=== PATIENT | female | born 1955 | race Caucasian/White ===

== ENCOUNTER 2017-06-22 08:23 | Observation (INO) ==
[2017-06-22] MEDS ORDERED: ENOXAPARIN 100 MG/ML SYRINGE SUBCUT STA (09:07)
[2017-06-22] MEDS ORDERED: MORPHINE 2 MG/1 ML SYRINGE IV STA (09:07)
[2017-06-22] MEDS ORDERED: ONDANSETRON 4 MG/2 ML VIAL IV STA (09:07)
[2017-06-22] MEDS ORDERED: ENOXAPARIN 100 MG/ML SYRINGE SUBCUT ONE (09:12)
--- NOTE | 2017-06-22 09:12 | Emergency Department Note ---
Fabian Jay Brittany, am scribing for, and in the presence of, Jose Reza MD 09:06. Libia Jay James D, MD, personally performed the services described in this documentation, ascribed by Jahaira Peralta in my presence, and it is both accurate and complete 912 . Arrival - Arrival Chief Complaint: Chest Pain Stated Complaint: chest pain ED Nursing Triage Note: C/O Having chest pain since last evening., states she woke up this am at 0400 with chest pain so she went to [facility] , Report from Medic was enzymes were negative at [facility] , During triage patient c/o having mid-to left chest pain that is sharp in nature and is radiating to the left arm and the neck, + SOB, + Nausea , patient has nitro paste at time of arrival to the right side of the chest Mode of Arrival: Ambulatory Limitations: No Limitations Source: Patient, RN Notes Reviewed - History of Present Illness HPI Narrative: Patient is a 61 y/o white female presenting to the ED via EMS from [facility] with c/o chest pain that began yesterday while taking to [place]. Resolved, then came back upon arrival home. Took a [place] and pain went away. Onset again this morning at 0300 described as a constant elephant sitting on her chest, worse with exertion. She has had some associated SOB and nausea with this pain. Patient presented to [facility] for further evaluation where she was found to have negative cardiac enzymes. 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 Last Cardiac Catheterization was 2 years ago and has had 5 stents placed with last being placed about 5-6 years ago. Pain is similar to that experienced when requiring catheterization. No further complaints. Onset (ago): hour(s) (4) Consistency: constant Severity: moderate Severity scale (1-10): 6 Quality: sharp Allergies/Adverse Reactions: Allergies Allergy/AdvReac Type Severity Reaction Status Date / Time No Known Allergies Allergy Verified 04/26/15 10:11 Review of System - Review of System 12 point system: reviewed and no additional remarkable complaints except as stated - Review of System Respiratory: Present: respiratory distress Cardiovascular: Present: chest pain Gastrointestinal: Present: nausea Musculoskeletal: Present: neck pain Medical,Surgical,& Family Hx - Medical History Cardio: History of: Hypertension, [place] Neurology: No history of: Seizures Endocrine: History of: Dyslipidemia - Social History Smoking Status: Never smoker Frequency of Alcohol Use: None Type of Drug Use: None Exam Physical Examination: GENERAL: This is a well-nourished, well-developed white female in no apparent distress. VITAL SIGNS: Reviewed. HEENT: Head is normocephalic and atraumatic. Pupils are equally round and reactive to light. Extraocular movement are intact. Oropharynx is benign with moist mucous membranes. NECK: Neck is soft and supple without tenderness. There are no masses. There is no lymphadenopathy. LUNGS: Lungs are clear to auscultation bilaterally. Chest rises symmetrically. There is no chest wall tenderness. CV: Heart is regular rate and rhythm without murmurs, rubs, or gallops. ABDOMEN: Abdomen is soft, non-tender to palpation. There are no abnormal masses palpated. There is no organomegaly. Bowel sounds are present and active. SKIN: Skin is warm and dry. No rash. EXTREMITIES: Patient has full range of motion without tenderness. There is no pedal edema. NEUROLOGIC: Awake, alert, and oriented x4. Cranial nerves II through XII are grossly intact. There are no motorsensory deficits. PSYCHIATRIC: Normal affect. Normal mood. Vital Signs: Vital Signs Temperature 98.7 F 06/22/17 08:24 Pulse Rate 61 06/22/17 08:34 Respiratory Rate 16 06/22/17 08:34 Blood Pressure 148/88 06/22/17 08:34 O2 Sat by Pulse Oximetry 100 06/22/17 08:34 Course - Consultations Consultation #1: Discussed with Dr. Wisdom. Patient will be admitted to their service. Time: 09:08 Results - Labs Lab Results: I have reviewed the patients labs Labs: Lab performed at [facility] and reviewed by me: INR 1.0 Troponin less than 0.03 ProBNP 243 Urinalysis: Specific gravity 1.010, pH 6.0, nitrite negative, protein negative, glucose negative Urine drug screen positive for opiates Chemistry: Sodium 141, potassium 4.1, chloride 100, CO2 31, BUN 15, creatinine 0.7, glucose 146, - EKG EKG results: interpreted by ERMD - Impressions EKG: Sinus bradycardia with a rate of 55, normal ST T waves, normal axis. - Diagnostic Findings Procedure: Chest x-ray: image reviewed by me Disposition Clinical Impression: Unstable angina, Coronary artery disease Case discussed with: patient Condition: Guarded
[2017-06-22] MEDS ORDERED: MORPHINE 2 MG/1 ML SYRINGE ONE (09:13)
[2017-06-22] MEDS ORDERED: ONDANSETRON 4 MG/2 ML VIAL ONE ×2 (09:13→12:10)
[2017-06-22] MEDS ORDERED: NITROGLYCERIN 2% OINT 1 INCH/GM PACK TOP STA (09:48)
--- NOTE | 2017-06-22 09:48 | Cardiology History & Physical ---
<Polly Hackett - Last Filed: 06/22/17 09:51> Assessment and Plan - Time spent with patient Time spent with patient: Greater than 30 minutes (1) Chest pain Status: Acute Assessment and plan: SEE PLAN OF CARE LISTED BELOW. Current Visit: Yes (2) Hypertension Status: Chronic Assessment and plan: SEE PLAN OF CARE LISTED BELOW. Current Visit: Yes (3) Dyslipidemia Status: Chronic Assessment and plan: SEE PLAN OF CARE LISTED BELOW. Current Visit: Yes (4) Diabetes Status: Chronic Assessment and plan: SEE PLAN OF CARE LISTED BELOW. Current Visit: Yes (5) Coronary artery disease Status: Chronic Assessment and plan: SEE PLAN OF CARE LISTED BELOW. 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 Rodriguez is a 61 year old female with known history of coronary artery disease , routinely followed by [place] [facility]ology. Cardiac surgery significant for: Known CAD, hypertension, dyslipidemia, diabetes, obesity, family history of CAD (mother and father [place]) and sedentary lifestyle. Past medical history of thyroidectomy. Lifetime non-smoker. She is a patient of Dr. Blanco. Previous cardiology records unavailable. She reports that she has no history of cardiomyopathy. Will request previous cardiology records. She does report that her last heart catheterization was performed between 1-2 years ago. Her coronary anatomy was unchanged at that time and she did not require intervention. She does report a history of 5 stents in the past. Her first stent was placed around year 1999 and she has required 1-2 stents every couple of years since that time. Patient presented to [facility] June 22, 2017 with complaints of left-sided and midsternal chest pain. Her chest pain began yesterday while she was taking her to [place]. She describes it as a squeezing type pain located to her left chest also midsternal area. Radiated to her jaw left arm and back of her neck. Associated with shortness of breath, nausea and diaphoresis. She reports that this lasted approximately 30 minutes. She took nitroglycerin which then resolved her discomfort. She then had intermittent episodes off and on the rest of the day. She took her cardiology medications at night and felt better. Around 3:00 this morning she was awoken with chest pain. She reports that it felt like an elephant was sitting on top of her chest. Associated with severe shortness of breath, nausea and diaphoresis. Radiation to jaw, left arm and back of neck. She was very concerned as it felt exactly like it has in the past when she has underwent coronary PCI. She is unsure if there was an exertional component as she has not done anything exertional in the last couple days because she has not felt well. Unable to identify any alleviating or aggravating factors other than nitroglycerin did lessen her pain. At that point, she was concerned that she was having a heart attack and [facility] At that facility, she was noted to have negative cardiac biomarkers. She was sent to our facility for further evaluation. She will be admitted under cardiology's service. Patient was seen and examined in the emergency department. She continues to have intermittent chest pain. Concerning for angina. Cardiac biomarkers are pending. EKG without ischemic changes. Patient did receive therapeutic dose of Lovenox in the emergency department. I have added full dose aspirin. Unfortunately, heart rate will not allow for initiation of beta blockade. Continue nitrates. Patient continues to have intermittent chest pain. I discussed this with Dr. Ryann Rolle. We will start heparin infusion plan for heart catheterization today. I will keep patient n.p.o. Risk and benefits of cardiac catheterization were reviewed with the patient. She is agreeable to proceed today. She denies allergy to IVP dye, shellfish or iodine. Further plan and addendum to follow per Dr. Ryann Rolle IMPRESSION AND PLAN: 1. CHEST PAIN - Concerning for angina. Patient received therapeutic dose Lovenox in the emergency department. I have added full dose aspirin. Unfortunately, heart rate will not allow for beta-blockade. Continue nitrates. Cardiac biomarkers pending. EKG without ischemic changes. She continues to have intermittent chest pain. I discussed this with Dr. Ryann Rolle. We will start heparin infusion and plan for heart catheterization. I will keep patient n.p.o. Risk and benefits of cardiac catheterization were reviewed with the patient. She is agreeable to proceed today. She denies allergy to IVP dye , iodine or shellfish. Further plan and addendum to follow per Dr. Rolle 2. HISTORY OF CAD - Patient of Dr. Blanco. No previous cardiology records available. These have been requested. Continue aspirin and nitrates. Heart rate will not allow for beta-blockade. Hopefully we can initiate this prior to discharge. 3. HYPERTENSION - Suboptimally controlled. I have added Norvasc. All medications have not been 4. DYSLIPIDEMIA - Lipid panel ordered. Will reinitiate lipid-lowering agent when medications have been identified and confirmed. 5. DIABETES - Sliding scale insulin. Accu-Cheks before meals and at bedtime. Allergies Allergy/AdvReac Type Severity Reaction Status Date / Time No Known Allergies Allergy Verified 04/26/15 10:11 - Constitutional Constitutional: Present: as per HPI, fatigue. Absent: chills, fever(s), frequent falls, headache(s), weakness, weight gain, weight loss - Cardiovascular Cardiovascular: Present: as per HPI, chest pain at rest, diaphoresis, dyspnea, dyspnea on exertion, radiating jaw, neck or arm pain. Absent: claudication, edema, lightheadedness, orthopnea, palpitations, PND - Respiratory Respiratory: Present: dyspnea, dyspnea on exertion. Absent: as per HPI, cough, hemoptysis, wheezing, snoring, pain on inspiration, change in phlegm color - Gastrointestinal Gastrointestinal: Present: as per HPI, nausea. Absent: abdominal pain, change in bowel habits, coffee ground emesis, heartburn, hematemesis, hematochezia, melena, vomiting - Neurological Neurological: Present: as per HPI. Absent: abnormal gait, abnormal speech, behavioral changes, dizziness, frequent falls, syncope - Psychiatric Psychiatric: Absent: as per HPI, anxiety, depression, panic attacks - Hematologic/Lymphatic Hematologic/Lymphatic: Present: as per HPI. Absent: easy bleeding, easy bruising Medical,Surgical,& Family Hx - Medical History Cardio: History of: CAD, Hypertension, [place] Neurology: No history of: Seizures Endocrine: History of: Diabetes Mellitus (NIDDM), Dyslipidemia - Surgical History Cardiac Surgeries: Sugical HX of: Cardiac Catheterization - Family History Family History: Reports;: Family Heart Disease - Social History Smoking Status: Never smoker Frequency of Alcohol Use: None Type of Drug Use: None Marital Status: Life Partner Lives With:: Significant Other Functional capacity: independent ambulation Cardiology Physical Exam - Constitutional Vitals: Vital Signs Temp Pulse Resp BP Pulse Ox 98.7 F 54 L 16 169/77 100 06/22/17 08:24 06/22/17 09:00 06/22/17 09:00 06/22/17 09:00 06/22/17 09:00 Intake and Output 06/21/17 06/22/17 06/22/17 22:59 06:59 14:59 Other: Weight 206 lb Patient Weight 06/23/17 06:59 Weight 206 lb Exam: General: Appears well with no apparent distress. Pleasant and cooperative. Appears comfortable. HEENT: PERRL, normocephalic, atraumatic. Mucous membranes moist. No jaundice noted. Conjunctiva moist and clear, sclerae anicteric Neck: No JVD/HJR, no thyromegaly or lymphadenopathy noted. No carotid bruit appreciated Cardiac: Regular rate and rhythm. No murmur rub or gallop. Lungs: Clear to auscultation without accessory muscle use to assist the respiratory pattern. Oxygen via nasal cannula Abdomen: Soft, bowel sounds normoactive. Nontender and nondistended. No abdominal bruit or thrill noted. No masses noted. Extremities: No clubbing, cyanosis noted. No edema noted. Upper extremity pulses 2+. Lower extremity pulses 2+. Capillary refill less than 3 seconds. Skin: No unusual lesions or rashes. No skin breakdown appreciated. Neuro: Awake, alert and oriented 3. Moves all extremities well without hemiparesis or paralysis. No essential tremor is appreciated. Result/EKG - Labs Lab Results: I have reviewed the past 24 hour labs <Ryann Rolle - Last Filed: 06/22/17 10:38> History of Present Illness History of present illness: I have personally interviewed and examined the patient, reviewed the chart and discussed medical decision-making with practitioner Lew. I have read this note and agree with the documentation herein. The patient is known to have coronary artery disease and presents with cardiac symptoms that have some atypical features, some typical features, but are ongoing and similar to prior anginal symptoms. Accordingly we will proceed with cardiac catheterization. She has no contra indication to dual antiplatelet therapy, denies IVP contrast allergy. Cardiology Physical Exam - Constitutional Vitals: Vital Signs Temp Pulse Resp BP Pulse Ox 98.7 F 54 L 1 L 165/75 100 06/22/17 08:24 06/22/17 10:00 06/22/17 10:00 06/22/17 10:00 06/22/17 10:00 Intake and Output 10/01/3106/22/17 06/22/17 23:59 07:59 15:59 Other: Weight 93.44 kg Patient Weight 06/22/17 23:59 Weight 93.44 kg Result/EKG - Labs Labs: Laboratory Results - last 24 hr 06/22/17 09:26 Troponin I < 0.015
[2017-06-22] MEDS ORDERED: ASPIRIN 325 MG TABLET PO STA (09:50)
--- NOTE | 2017-06-22 09:58 | XRay Report ---
History: Chest pain Date: 06/22/2017 at 9:44 AM Study: Chest x-ray AP portable Comparison exam: July 24, 2016 outside chest x-ray The cardiac silhouette is upper normal in size. Coronary artery stent overlies the left cardiac shadow. There is no mediastinal mass. The pulmonary vasculature is not engorged. The lungs and pleural spaces are generally clear. Osseous structures are unchanged. Impression: No acute cardiopulmonary process compared to the previous study. Coronary artery stent PROCEDURE INTERPRETED AT [facility] DEPARTMENT OF RADIOLOGY Final Report Signed by: Dr. Lizy Hopkins
[2017-06-22] MEDS ORDERED: amLODIPine 5 MG TABLET PO STA (09:59)
[2017-06-22] MEDS ORDERED: SODIUM CHLORIDE 0.45% 1,000 ML IV SCH (10:00)
[2017-06-22] MEDS ORDERED: NITROGLYCERIN 2% OINT 1 INCH/GM PACK TOP ONE (10:17)
[2017-06-22] MEDS ORDERED: amLODIPine 5 MG TABLET ONE (10:17)
[2017-06-22] MEDS ORDERED: ASPIRIN 325 MG TABLET ONE (10:17)
[2017-06-22] MEDS ORDERED: ACETAMINOPHEN 325 MG TABLET PO PRN (10:20)
[2017-06-22] MEDS ORDERED: MAGNESIUM SULF RIDER 4 GM in PREMIX 1 EACH IV PRN (10:20)
[2017-06-22] MEDS ORDERED: INSULIN REGULAR 100 UNIT/ML SUBCUT ONE (10:20)
[2017-06-22] MEDS ORDERED: POTASSIUM CHLORIDE 20 MEQ TABLET PO PRN (10:20)
[2017-06-22] MEDS ORDERED: ZALEPLON 5 MG CAPSULE PO PRN (10:20)
[2017-06-22] MEDS ORDERED: MAGNESIUM SULF RIDER 2 GM in PREMIX 1 EACH IV PRN ×2 (10:20→10:26)
[2017-06-22] MEDS ORDERED: POTASSIUM CHLORIDE RIDER 10 MEQ in PREMIX 1 EACH IV PRN (10:26)
[2017-06-22] MEDS ORDERED: DIAZEPAM 5 MG TABLET PO ONE (10:26)
[2017-06-22] MEDS ORDERED: diphenhydrAMINE CAP 25 MG CAPSULE PO ONE (10:26)
[2017-06-22] MEDS ORDERED: HEPARIN DRIP 25,000 UNITS/500 ML PREMIX IV SCH (10:30)
[2017-06-22 10:38] LABS: Risk Ratio 2.54; VLDL CHOLESTEROL 33.8 MG/DL
--- NOTE | 2017-06-22 10:38 | History and Physical Update ---
Sedation H&P Update - History and Physical H&P was reviewed, the patient examined and there: are no changes in the patients condition since last H&P was completed. - Dictation Physical: refer to H&P completed by admitting physician - Physical Exam Mental Status: alert and oriented Heart: regular rate and rhythm Lung: clear to auscultation Abdomen: within normal limits Vitals: within normal limits - Sedation Plan for Sedation: moderate Patient Consent: Procedure disscussed with patient and patinet has consented., Risks and benefits were discussed with patient,including infection,, bleeding, injury to surrounding structures, seizure, temporary nerve, Patient understands and accepts potential risks/benefits and agrees to, proceed. ASA Class: IV Airway Assessment: Class II: Soft palate, uvula, fauces visible
[2017-06-22 10:43] LABS: Troponin I Only < 0.015 NG/ML (0.00-0.045)
[2017-06-22 10:48] LABS: Calcium 8.8 MG/DL (8.5-10.1); Magnesium 2.1 MG/DL (1.8-2.4); Osmolality,Calculated 281.4 MOS/KG (273-304); Potassium 3.9 MMOL/L (3.5-5.1)
[2017-06-22] MEDS ORDERED: LIDOCAINE 1% 20 ML VIAL ONE (11:03)
[2017-06-22] MEDS ORDERED: HEPARIN/NACL 0.9% 2 UNITS/ML 1,000 ML IV ONE (11:04)
[2017-06-22] MEDS ORDERED: diphenhydrAMINE CAP 25 MG CAPSULE ONE (11:17)
[2017-06-22] MEDS ORDERED: DIAZEPAM 5 MG TABLET ONE (11:17)
[2017-06-22] MEDS ORDERED: SODIUM BICARB INJ 100 MEQ in SODIUM CHLORIDE 0.45% 1,000 ML IV SCH (11:40)
[2017-06-22] MEDS ORDERED: fentaNYL 100 MCG/2 ML VIAL ONE ×2 (11:49→12:19)
[2017-06-22] MEDS ORDERED: MIDAZOLAM 2 MG/2 ML VIAL ONE ×2 (11:49→12:09)
[2017-06-22] MEDS ORDERED: NITROGLYCERIN 2% OINT 1 INCH/GM PACK TOP SCH (12:00)
[2017-06-22] MEDS ORDERED: EPTIFIBATIDE 20,000 MCG/10 ML VIAL ONE (12:07)
[2017-06-22] MEDS ORDERED: EPTIFIBATIDE 75 MG/100 ML BOTTLE IV ONE (12:09)
[2017-06-22] MEDS ORDERED: NITROGLYCERIN SL 0.4 MG TABLET SL PRN (12:45)
--- NOTE | 2017-06-22 13:13 | Order Completion Report ---
See report scanned to EMR
--- NOTE | 2017-06-22 14:57 | CT Report ---
Exam: CT angiography chest without and with intravenous contrast Clinical History: 61 years,Female,pleuritic chest pain, shortness of breath Technique: Axial computed tomographic angiography images of the chest without and with intravenous contrast using pulmonary embolism protocol. The CT exam was performed using one or more of the following dose reduction techniques: Automated exposure control, adjustment of the mA and/or kV according to patient size, or use of iterative reconstruction technique. Contrast: 100 mL of Omnipaque 350 administered intravenously Comparison: No relevant comparison studies available Findings: Pulmonary arteries: No vascular intraluminal filling defects to suggest pulmonary embolism Aorta: No dissection or thoracic aortic aneurysm. Lungs: Well aerated. No consolidation. No mass. Pleural spaces: No effusion. No pneumothorax Heart: Coronary atherosclerotic changes. Likely coronary stent in place Mediastinum: Moderate hiatal hernia Bones/joints: Intact. No acute fracture. No dislocation. Soft tissues: Unremarkable. Lymph nodes: No enlarged lymph nodes Impression: 1. No evidence of pulmonary embolism 2. Moderate hiatal hernia 3. Coronary atherosclerosis 4. Other findings as described PROCEDURE INTERPRETED AT [facility] DEPARTMENT OF RADIOLOGY Final Report Signed by: Bernardo Jerry MD
[2017-06-22] MEDS: ACETAMINOPHEN/CODEINE 300-30 MG TABLET PO PRN ×2 (15:22→21:15)
--- NOTE | 2017-06-22 16:04 | Order Completion Report ---
See report scanned to EMR
[2017-06-22] MEDS: PROMETHAZINE 25 MG TABLET PO PRN (16:09)
[2017-06-22] MEDS: FUROSEMIDE 40 MG TABLET PO SCH (16:09)
[2017-06-22 17:31] LABS: Basophils % 0.4 % (0.0-0.8); Eosinophils # 0.3 10*3/uL (0.0-0.87); Eosinophils % 3.6 % (0.00-10.9); Hematocrit 33.9 VOL% (35.7-47.0); Hemoglobin 11.4 GM/DL (12.0-16.0); Immature Granulocytes % 0.3 %; Immature Granulocytes Absolute 0.02 #; Lymphocytes # 2.3 10*3/uL (1.4-4.0); Lymphocytes % 31.4 % (21.3-54.2); Mean Corpuscular HGB Conc 33.6 GM/DL (32-36); Mean Corpuscular Hemoglobin 29 PG (27-34); Mean Corpuscular Volume 87.4 FL (87-102); Mean Platelet Volume 9.3 FL (9.6-12.0); Monocytes # 0.5 10*3/uL (0.11-0.8); Monocytes % 7.2 % (1.7-12.7); Neutrophils # 4.2 10*3/uL (1.4-7.4); Neutrophils % 57.1 % (38.7-73.9); Platelet Count 231 T/CUMM (130-400); Red Blood Count 3.88 MC/CUMM (3.8-5.5); Red Cell Distribution Width 13.4 % (9.3-17.3); White Blood Count 7.3 T/CUMM (4-12)
[2017-06-22 17:42] LABS: PT Patient Result 10.7 SECS; Partial Thromboplastin Time 28.8 SECS (0-40)
[2017-06-22 18:36] LABS: Troponin I Only 0.024 NG/ML (0.00-0.045)
[2017-06-22 20:07] LABS: Troponin I Only 0.146 NG/ML (0.00-0.045)
[2017-06-22] MEDS ORDERED: METOPROLOL TARTRATE 100 MG TABLET PO SCH (21:00)
[2017-06-22] MEDS: FAMOTIDINE 20 MG TABLET PO SCH (21:14)
[2017-06-22] MEDS: ALPRAZolam 0.5 MG TABLET PO SCH (21:15)
[2017-06-22] MEDS: DOCUSATE SODIUM 100 MG CAPSULE PO SCH (21:15)
[2017-06-22] MEDS: LATANOPROST 0.005% OPH SOLN 2.5 ML BOTTLE BOTH EYES SCH (21:15)
[2017-06-22] MEDS: METOPROLOL TARTRATE 50 MG TABLET PO SCH (21:15)
[2017-06-23 04:38] LABS: Basophils % 0.6 % (0.0-0.8); Eosinophils # 0.2 10*3/uL (0.0-0.87); Eosinophils % 3.2 % (0.00-10.9); Hematocrit 36.2 VOL% (35.7-47.0); Hemoglobin 11.7 GM/DL (12.0-16.0); Immature Granulocytes % 0.3 %; Immature Granulocytes Absolute 0.02 #; Lymphocytes # 1.5 10*3/uL (1.4-4.0); Lymphocytes % 22.1 % (21.3-54.2); Mean Corpuscular HGB Conc 32.3 GM/DL (32-36); Mean Corpuscular Hemoglobin 28 PG (27-34); Mean Corpuscular Volume 87.4 FL (87-102); Mean Platelet Volume 8.8 FL (9.6-12.0); Monocytes # 0.5 10*3/uL (0.11-0.8); Monocytes % 7.9 % (1.7-12.7); Neutrophils # 4.3 10*3/uL (1.4-7.4); Neutrophils % 65.9 % (38.7-73.9); Platelet Count 229 T/CUMM (130-400); Red Blood Count 4.14 MC/CUMM (3.8-5.5); Red Cell Distribution Width 13.3 % (9.3-17.3); White Blood Count 6.6 T/CUMM (4-12)
[2017-06-23] MEDS: ACETAMINOPHEN/CODEINE 300-30 MG TABLET PO PRN ×2 (05:17→15:35)
[2017-06-23 05:23] LABS: Risk Ratio 3.13; VLDL CHOLESTEROL 45.6 MG/DL
[2017-06-23 05:25] LABS: Albumin 3.4 G/DL (3.4-5.0); Bilirubin,Total 0.7 MG/DL (0.2-1.0); Calcium 8.9 MG/DL (8.5-10.1); Osmolality,Calculated 284.1 MOS/KG (273-304); Potassium 3.9 MMOL/L (3.5-5.1); Total Protein 6.1 G/DL (6.4-8.3)
[2017-06-23] MEDS: LEVOTHYROXINE 75 MCG TABLET PO SCH (06:36)
[2017-06-23] MEDS: PROMETHAZINE 25 MG TABLET PO PRN ×2 (06:36→15:35)
--- NOTE | 2017-06-23 07:43 | Pain Management Consult Note ---
Assessment and Plan (1) Cervical spondylosis with radiculopathy Status: Acute Assessment and plan: Patient is close to her baseline with some aggravation of pain in the cervical spine area patient will keep appointment for a cervical procedure with me early next month the procedure can be done sooner if needed think pain medications are appropriate at this time Current Visit: Yes History of Present Illness Chief complaint: Left-sided neck and chest pain History of present illness: Ms. Rodriguez is a 61 year old female Patient is well-known to me with chronic history of cervical spinal stenosis and degenerative disc disease of the cervical spine patient has had a series of cervical blocks with radiofrequency ablation last year which was very successful patient is still having those procedures by me this year and is scheduled for one on 24 July. Patient came in with neck pain radiating left chest underwent cardiac catheterization yesterday patient was also checked for a pulmonary embolus and CT of the chest was negative. Patient reports neck pain to be close to her baseline and is glad that this is not a cardiac event patient is agreeable to keeping appointment for a similar neck procedure on 24 July as an outpatient Home Medications Medication Instructions Recorded Confirmed Type ALPRAZolam [Alprazolam] 1 mg PO BEDTIME 06/22/17 06/22/17 History Aspirin EC Tab 325 mg PO QAM 06/22/17 06/22/17 History Clopidogrel Bisulfate [Clopidogrel] 75 mg PO QAM 06/22/17 06/22/17 History Docusate Sodium Cap [Colace Cap] 100 mg PO BEDTIME 06/22/17 06/22/17 History Duloxetine HCl [Duloxetine] 60 mg PO QAM 06/22/17 06/22/17 History Furosemide [Furosemide] 40 mg PO BID 06/22/17 06/22/17 History Hydrocodone/Acetaminophen [Peshtigo 1 each PO Q6H 06/22/17 06/22/17 History 10-325 Tablet] Isosorbide Mononitrate [Isosorbide 60 mg PO QAM 06/22/17 06/22/17 History Mononitrate ER] Latanoprost 0.005% Oph Soln 1 drop BOTH EYES BEDTIME 06/22/17 06/22/17 History [Xalatan 0.005% Oph Soln] Levothyroxine Tab [Synthroid Tab] 75 mcg PO QAM 06/22/17 06/22/17 History Metformin HCl [Metformin HCl ER] 500 mg PO QAM 06/22/17 06/22/17 History Metoprolol Tartrate 100 mg PO BID 06/22/17 06/22/17 History Multivitamin (Ocuvite) [Ocuvite] 1 tablet PO QAM 06/22/17 06/22/17 History Multivitamin/Iron/Folic Acid 1 each PO QAM 06/22/17 06/22/17 History [Centrum Women Tablet] Nitroglycerin Sl Tab [Nitrostat] 0.4 mg SL Q5M PRN 06/22/17 06/22/17 History Pantoprazole Tab [Protonix Tab] 40 mg PO QAM 06/22/17 06/22/17 History Potassium Chloride 20 meq PO QAM 06/22/17 06/22/17 History Promethazine Tab [Phenergan Tab] 25 mg PO Q8HR PRN 06/22/17 06/22/17 History Rosuvastatin Calcium 10 mg PO BEDTIME 06/22/17 06/22/17 History raNITIdine HCl [Ranitidine HCl] 300 mg PO BEDTIME 06/22/17 06/22/17 History Allergies Allergy/AdvReac Type Severity Reaction Status Date / Time No Known Allergies Allergy Verified 04/26/15 10:11 Medical,Surgical,& Family Hx - Medical History Cardio: History of: CAD, Hypertension, [place], Cardiovascular Problems Neurology: History of: TIA No history of: Seizures Endocrine: History of: Diabetes Mellitus (NIDDM), Dyslipidemia Gastrointestinal: History of: GERD Musculoskeletal: History of: Back/Neck Problems (back surgery) - Surgical History Cardiac Surgeries: Sugical HX of: Cardiac Catheterization Neurologic Surgeries: Patient denies: Neurologic Surgery HEENT Surgeries: Surgical HX of: Thyroid Surgery Abdominal Surgeries: Surgical HX of: Cholecystectomy, Hernia Repair Orthopedic Surgeries: Surgical HX of;: Total Knee Replacement (both knee) - Family History Family History: Reports;: Family Heart Disease - Social History Smoking Status: Never smoker Frequency of Alcohol Use: None Type of Drug Use: None 12 point system: reviewed and no additional remarkable complaints except as stated - Cardiovascular Cardiovascular: Present: radiating jaw, neck or arm pain Exam - Constitutional Vitals: Period Temp Pulse Resp BP Sys/Starr Pulse Ox Last 24 Hr 96.2 F-98.7 F 51-75 16-20 102-185/64-88 91-100 General appearance: no acute distress - Head Head exam: Present: normal inspection - Eye Eye exam: Present: EOMI Pupils: Present: GABRIELLE - ENT ENT exam: Present: normal exam Ear exam: Present: intact Mouth exam: Present: normal external inspection - Neck Neck exam: Present: normal inspection - Respiratory Respiratory exam: Present: clear to auscultation bilaterally - Cardiovascular Cardiovascular exam: Present: RRR - GI/Abdominal GI/Abdominal exam: Present: normal bowel sounds - Extremities Exam Extremities exam: Present: edema - Back Exam Back exam: Present: vertebral tenderness - Neurological Exam Neurological exam: Present: alert, oriented X3 - Skin Skin exam: Present: normal color Results - Labs CBC & BMP: 06/23/17 03:57 06/23/17 03:57 Lab Results: I have reviewed the past 24 hour labs Specialty Discharge - Follow Up or Referrals
--- NOTE | 2017-06-23 07:52 | Order Completion Report ---
See report scanned to EMR
[2017-06-23] MEDS: LISINOPRIL 20 MG TABLET PO SCH (09:12)
[2017-06-23] MEDS: METOPROLOL TARTRATE 50 MG TABLET PO SCH ×2 (09:12→21:18)
[2017-06-23] MEDS: CLOPIDOGREL 75 MG TABLET PO SCH (09:12)
[2017-06-23] MEDS: FUROSEMIDE 40 MG TABLET PO SCH ×2 (09:12→15:35)
[2017-06-23] MEDS: MULTIVITAMIN (CENTRUM) TABLET PO SCH (09:12)
[2017-06-23] MEDS: POTASSIUM CHLORIDE 20 MEQ TABLET PO SCH (09:12)
[2017-06-23] MEDS: DULoxetine 30 MG CAPSULE PO SCH (09:12)
[2017-06-23] MEDS: ROSUVASTATIN 10 MG TABLET PO SCH (09:13)
[2017-06-23] MEDS: PANTOPRAZOLE 40 MG TABLET PO SCH (09:13)
[2017-06-23] MEDS: ASPIRIN EC 81 MG TABLET PO SCH (09:13)
[2017-06-23] MEDS: MULTIVITAMIN (OCUVITE) TABLET PO SCH (09:13)
[2017-06-23] MEDS: ISOSORBIDE MONONITRATE 60 MG TABLET PO SCH (09:13)
[2017-06-23] MEDS: MORPHINE 2 MG/1 ML SYRINGE IV PRN (09:21)
--- NOTE | 2017-06-23 13:00 | Cardiology Progress Note ---
Assessment and Plan (1) Chest pain Status: Acute Current Visit: Yes (2) Coronary artery disease Status: Chronic Current Visit: Yes (3) Hypertension Status: Chronic Current Visit: Yes (4) Dyslipidemia Status: Chronic Current Visit: Yes (5) Diabetes Status: Chronic Current Visit: Yes Cardiology - PN: Subj Interval history: ASSISTANT PRINCIPAL: Dr. Blanco Summary: Ms. Rodriguez is a 61 year old female with known history of coronary artery disease, routinely followed by [facility]. Known CAD, hypertension , dyslipidemia, diabetes, obesity, family history of CAD (mother and father [place]) and sedentary lifestyle. Past medical history of thyroidectomy. Lifetime non- smoker. She is a patient of Dr. Blanco. Previous cardiology records unavailable. She reports that she has no history of cardiomyopathy. Will request previous cardiology records. She was admitted June 22, 2017 with complaints of left-sided and midsternal chest pain, associated with severe shortness of breath, nausea and diaphoresis. Radiation to jaw, left arm and back of neck. She was very concerned as it felt exactly like it has in the past when she has underwent coronary PCI. Accordingly she was carried urgently to the Senior Infrastructure [facility] June 22, 2017. She was found to have 100% occlusion of her LAD with a very small puny reconstituted LAD and the more distal segment. Initial attempts were made to wire this vessel but were unsuccessful. We then received information from the patient's usual hospital that she had undergone cardiac catheterization in 2016 and at that time she was described as having a chronically occluded mid LAD. Accordingly, further attempts PCI were aborted. June 23, 2014: She continues to have ongoing chest and back pain. There is a reproducible soreness to her left chest. The pain is also worse on the left side when she takes a deep breath, and she also had worsening on the right side yesterday when she took a deep breath. Appreciate Dr. Wu evaluating the patient. He believes that her pain is at baseline, however the patient denies this and feels that things are worse in general. She did have some oozing from her right groin and ended up having to stay in bed all through the night and is just now about to get up and around now that her groin is finally stopped using. CT PE protocol was negative for PE. She is not having any other acute complaints. IMPRESSION AND PLAN: 1. CHEST PAIN -she has 100% CT of the mid LAD and did not have any acute findings on her cardiac catheterization yesterday. I believe her symptoms are noncardiac. We are going to get her out of bed to try to improve her back, ask for Dr. Wu's help controlling her pain and maybe even apply a warm pad to the affected area. 2. HISTORY OF CAD - Patient of Dr. Blanco. This appears to be stable. 3. HYPERTENSION -we will continue to follow and adjust antihypertensive regimen as indicated. 4. DYSLIPIDEMIA - Will reinitiate lipid-lowering agent when medications have been identified and confirmed. 5. DIABETES - Sliding scale insulin. Accu-Cheks before meals and at bedtime. 6. Status post cardiac catheterization-she had some ongoing oozing overnight. We will observe her an additional day to make sure she has adequate hemostasis and try to improve her back pain. Exam (Progress Note) - Constitutional Vitals: Period Temp Pulse Resp BP Sys/Starr Pulse Ox Last 24 Hr 96.2 F-98.0 F 54-75 16-20 102-160/64-82 90-97 Exam: General appearance: normal weight, no acute distress - Head Head exam: Present: normal inspection, normocephalic, atraumatic. Absent: hematoma, laceration - Eye Eye exam: Present: EOMI. Absent: conjunctival injection, nystagmus, periorbital swelling, scleral icterus, laceration to eyelids Pupils: Present: PERRL. Absent: constricted, dilated, fixed, irregular, unequal - ENT ENT exam: Present: normal exam, normal external ear exam - Neck Neck exam: Present: normal inspection. Absent: lymphadenopathy, meningismus, tenderness, thyromegaly - Respiratory Respiratory exam: Present: clear to auscultation bilaterally. Absent: accessory muscle use, chest wall tenderness - Cardiovascular Cardiovascular exam: Present: regular rate and rhythm. Absent: carotid bruit, gallop, JVD, rubs - GI/Abdominal GI/Abdominal exam: Present: normal bowel sounds, soft. Absent: distended, firm , guarding, hernia, mass, tenderness, rebound. - Extremities Exam Extremities exam: Present: Right groin is without hematoma or bruit, no ecchymosis or active bleeding, right femoral pulse is 3+, right posterior tibialis is 2+, normal capillary refill. Absent: calf tenderness, edema - Back Exam Back exam: Present: normal inspection. Absent: muscle spasm, vertebral tenderness - Neurological Exam Neurological exam: Present: alert, oriented X3, grossly intact without resting or intention tremor - Psychiatric Psychiatric exam: Present: normal affect, normal mood - Skin Skin exam: Present: normal color, warm, dry, intact. Absent: cyanosis, diaphoretic, rash, urticaria Result/EKG - Labs CBC & BMP: 06/23/17 03:57 06/23/17 03:57 Lab Results: I have reviewed the past 24 hour labs Labs: Laboratory Results - last 24 hr 06/22/17 06/22/17 06/22/17 16:25 16:25 16:25 WBC 7.3 RBC 3.88 Hgb 11.4 L Hct 33.9 L MCV 87.4 MCH 29 MCHC 33.6 RDW 13.4 Plt Count 231 MPV 9.3 L Neut % (Auto) 57.1 Lymph % (Auto) 31.4 Bartholomew % (Auto) 7.2 Eos % (Auto) 3.6 Baso % (Auto) 0.4 Neut # (Auto) 4.2 Lymph # (Auto) 2.3 Bartholomew # (Auto) 0.5 Eos # (Auto) 0.3 Baso # (Auto) 0.0 Immature Gran % 0.3 Nucleated RBC % 0.0 Immature Gran # 0.02 Nucleated RBCs # 0.00 Immature Plt Fraction 0.0 INR PT Patient/Control Mix D-Dimer, Quantitative 1.0 Circ Anticoag PTT Sodium Potassium Chloride Carbon Dioxide Anion Gap BUN Creatinine GFR Calculation BUN/Creatinine Ratio Glucose Calculated Osmolality Calcium Total Bilirubin AST ALT Alkaline Phosphatase Total Creatine Kinase 89 CK-MB (CK-2) 1.8 Troponin I 0.024 B-Natriuretic Peptide Total Protein Albumin Globulin Albumin/Globulin Ratio Triglycerides Cholesterol LDL Cholesterol VLDL Cholesterol HDL Cholesterol Heart Disease Risk Ratio 06/22/17 06/22/17 06/22/17 16:26 16:26 19:12 WBC RBC Hgb Hct MCV MCH MCHC RDW Plt Count MPV Neut % (Auto) Lymph % (Auto) Bartholomew % (Auto) Eos % (Auto) Baso % (Auto) Neut # (Auto) Lymph # (Auto) Bartholomew # (Auto) Eos # (Auto) Baso # (Auto) Immature Gran % Nucleated RBC % Immature Gran # Nucleated RBCs # Immature Plt Fraction INR 1.0 PT Patient/Control Mix 10.7 D-Dimer, Quantitative Circ Anticoag PTT 28.8 Sodium Potassium Chloride Carbon Dioxide Anion Gap BUN Creatinine GFR Calculation BUN/Creatinine Ratio Glucose Calculated Osmolality Calcium Total Bilirubin AST ALT Alkaline Phosphatase Total Creatine Kinase 87 CK-MB (CK-2) 1.8 Troponin I 0.146 H D B-Natriuretic Peptide 132 H Total Protein Albumin Globulin Albumin/Globulin Ratio Triglycerides Cholesterol LDL Cholesterol VLDL Cholesterol HDL Cholesterol Heart Disease Risk Ratio 06/23/17 06/23/17 06/23/17 03:57 03:57 03:57 WBC 6.6 RBC 4.14 Hgb 11.7 L Hct 36.2 MCV 87.4 MCH 28 MCHC 32.3 RDW 13.3 Plt Count 229 MPV 8.8 L Neut % (Auto) 65.9 Lymph % (Auto) 22.1 Bartholomew % (Auto) 7.9 Eos % (Auto) 3.2 Baso % (Auto) 0.6 Neut # (Auto) 4.3 Lymph # (Auto) 1.5 Bartholomew # (Auto) 0.5 Eos # (Auto) 0.2 Baso # (Auto) 0.0 Immature Gran % 0.3 Nucleated RBC % 0.0 Immature Gran # 0.02 Nucleated RBCs # 0.00 Immature Plt Fraction 0.0 INR PT Patient/Control Mix D-Dimer, Quantitative Circ Anticoag PTT Sodium 142 Potassium 3.9 Chloride 102 Carbon Dioxide 32 Anion Gap 11.9 BUN 12 Creatinine 0.60 GFR Calculation 103 BUN/Creatinine Ratio 20.00 Glucose 128 H Calculated Osmolality 284.1 Calcium 8.9 Total Bilirubin 0.70 AST 16 ALT 16 Alkaline Phosphatase 85 Total Creatine Kinase CK-MB (CK-2) Troponin I B-Natriuretic Peptide Total Protein 6.1 L Albumin 3.4 Globulin 2.7 Albumin/Globulin Ratio 1.2 Triglycerides 228 H Cholesterol 175 LDL Cholesterol 86.0 VLDL Cholesterol 45.6 HDL Cholesterol 56 Heart Disease Risk Ratio 3.13 Specialty Discharge - Follow Up or Referrals
[2017-06-23] MEDS: FAMOTIDINE 20 MG TABLET PO SCH (21:17)
[2017-06-23] MEDS: ALPRAZolam 0.5 MG TABLET PO SCH (21:18)
[2017-06-23] MEDS: DOCUSATE SODIUM 100 MG CAPSULE PO SCH (21:18)
[2017-06-23] MEDS: LATANOPROST 0.005% OPH SOLN 2.5 ML BOTTLE BOTH EYES SCH (21:20)
[2017-06-24] MEDS: LEVOTHYROXINE 75 MCG TABLET PO SCH (06:42)
[2017-06-24 06:46] LABS: Basophils % 0.4 % (0.0-0.8); Eosinophils # 0.3 10*3/uL (0.0-0.87); Eosinophils % 3.6 % (0.00-10.9); Hematocrit 34.4 VOL% (35.7-47.0); Hemoglobin 11.5 GM/DL (12.0-16.0); Immature Granulocytes % 0.4 %; Immature Granulocytes Absolute 0.03 #; Lymphocytes # 1.3 10*3/uL (1.4-4.0); Lymphocytes % 19.1 % (21.3-54.2); Mean Corpuscular HGB Conc 33.4 GM/DL (32-36); Mean Corpuscular Hemoglobin 29 PG (27-34); Mean Corpuscular Volume 86.2 FL (87-102); Mean Platelet Volume 8.5 FL (9.6-12.0); Monocytes # 0.4 10*3/uL (0.11-0.8); Monocytes % 6.3 % (1.7-12.7); Neutrophils # 4.9 10*3/uL (1.4-7.4); Neutrophils % 70.2 % (38.7-73.9); Platelet Count 217 T/CUMM (130-400); Red Blood Count 3.99 MC/CUMM (3.8-5.5)
[2017-06-24 07:19] LABS: Calcium 8.5 MG/DL (8.5-10.1); Osmolality,Calculated 279.7 MOS/KG (273-304); Potassium 4.2 MMOL/L (3.5-5.1)
[2017-06-24] MEDS: ASPIRIN EC 81 MG TABLET PO SCH (08:39)
[2017-06-24] MEDS: MULTIVITAMIN (OCUVITE) TABLET PO SCH (08:39)
[2017-06-24] MEDS: METOPROLOL TARTRATE 50 MG TABLET PO SCH (08:39)
[2017-06-24] MEDS: ROSUVASTATIN 10 MG TABLET PO SCH (08:39)
[2017-06-24] MEDS: DULoxetine 30 MG CAPSULE PO SCH (08:39)
[2017-06-24] MEDS: MULTIVITAMIN (CENTRUM) TABLET PO SCH (08:39)
[2017-06-24] MEDS: POTASSIUM CHLORIDE 20 MEQ TABLET PO SCH (08:39)
[2017-06-24] MEDS: LISINOPRIL 20 MG TABLET PO SCH (08:39)
[2017-06-24] MEDS: FUROSEMIDE 40 MG TABLET PO SCH (08:39)
[2017-06-24] MEDS: PANTOPRAZOLE 40 MG TABLET PO SCH (08:39)
[2017-06-24] MEDS: ISOSORBIDE MONONITRATE 60 MG TABLET PO SCH (08:39)
[2017-06-24] MEDS: CLOPIDOGREL 75 MG TABLET PO SCH (08:39)
[2017-06-24] MEDS: MORPHINE 2 MG/1 ML SYRINGE IV PRN (08:45)
[2017-06-24 11:58] VITALS: BP 148/67
--- NOTE | 2017-06-24 12:10 | Cardiology Progress Note ---
Assessment and Plan (1) Chest pain Status: Acute Current Visit: Yes (2) Coronary artery disease Status: Chronic Current Visit: Yes (3) Hypertension Status: Chronic Current Visit: Yes (4) Dyslipidemia Status: Chronic Current Visit: Yes (5) Diabetes Status: Chronic Current Visit: Yes Cardiology - PN: Subj Interval history: SHIP CAPTAIN: Dr. Blanco Ms. Rodriguez is a 61 year old female with known history of coronary artery disease , routinely followed by [facility]. Hx of CAD, hypertension, dyslipidemia, diabetes, obesity, family history of CAD (mother and father [place]) and sedentary lifestyle. She presented to the emergency room with complaints of ongoing chest pain. Cardiac biomarkers were negative, EKG was unremarkable, however the patient was having ongoing symptoms that she initially reported as similar to her prior angina. She underwent cardiac catheterization on June 22, 2017 which revealed subtotal occlusion of her mid LAD which was an in stent restenosis and no other significant obstructive disease. We have requested records from [facility] but proceeded with attempted PCI of the mid LAD. The lesion cannot be readily wired, and during this time we received records that reported this lesion as chronic, described in cardiac catheterization from Dr. Blanco in 2016. Further attempts at PCI were aborted. The patient did have some collateralization to this region and systolic function was preserved. She had some pleuritic components to her chest discomfort and CT scan of the chest PE protocol was ordered, which did not show any significant pathology other than a moderate hiatal hernia. Dr. Wu, her pain doctor was consulted. He did not adjust her medications but offered reassurance, and the patient has an appointment for pain intervention the first week of July. Postoperatively she had some oozing from her groin and was observed an additional day to ensure hemostasis. Hemoglobin remained stable. No other complications were observed. She is being discharged home in stable condition and should follow-up with Dr. Blanco in 1-2 weeks. She should keep her usual follow-up with Dr. Wu. I have advised her to call his clinic should her symptoms worsen or not improve tomorrow. Exam (Progress Note) - Constitutional Vitals: Period Temp Pulse Resp BP Sys/Starr Pulse Ox Last 24 Hr 97.5 F-98.7 F 59-92 15-20 121-157/65-87 90-94 Result/EKG - Labs CBC & BMP: 06/24/17 06:41 06/24/17 06:41 Labs: Laboratory Results - last 24 hr 06/24/17 06/24/17 06:41 06:41 WBC 7.0 RBC 3.99 Hgb 11.5 L Hct 34.4 L MCV 86.2 L MCH 29 MCHC 33.4 RDW 13.0 Plt Count 217 MPV 8.5 L Neut % (Auto) 70.2 Lymph % (Auto) 19.1 L Weakley % (Auto) 6.3 Eos % (Auto) 3.6 Baso % (Auto) 0.4 Neut # (Auto) 4.9 Lymph # (Auto) 1.3 L Weakley # (Auto) 0.4 Eos # (Auto) 0.3 Baso # (Auto) 0.0 Immature Gran % 0.4 Nucleated RBC % 0.0 Immature Gran # 0.03 Nucleated RBCs # 0.00 Immature Plt Fraction 0.0 Sodium 138 Potassium 4.2 Chloride 100 Carbon Dioxide 32 Anion Gap 10.2 BUN 15 Creatinine 0.70 GFR Calculation 98 BUN/Creatinine Ratio 21.00 H Glucose 177 H Calculated Osmolality 279.7 Calcium 8.5 Specialty Discharge - Follow Up or Referrals
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
--- NOTE | 2017-06-24 20:06 | Order Completion Report ---
See report scanned to EMR
== END 2017-06-24 15:24 | disposition home or self-care (01) ==
LOC: EDUNIT# → EDBD → N.EDINP 08:23 → N.ED 08:23 → N.EDINP 11:00 → N.TELEN 12:08
PROVIDERS: ADMIT Internal Medicine Cardiovascular Disease; ATTEND Internal Medicine Cardiovascular Disease
PROC: CLCCHCL (ICD-10-PCS; 2017-06-22 13:45)